=== PATIENT | male | born 1965 | race Caucasian/White ===

== ENCOUNTER 2016-06-30 17:24 | Emergency (ER) | payer SELFPAY ==
[~2016-06-30] VITALS: Ht 167.6 cm; Wt 78.0 kg
[2016-06-30 17:28] VITALS: Ht 167.6 cm; Wt 78.0 kg
[2016-06-30] MEDS ORDERED: CARB15DR48 BOTH EARS (23:40)
--- NOTE | 2016-06-30 23:52 | ERA ---
ER Documentation Chief Complaint Date/Time DATE: 06/30/16 TIME: 23:41 Chief Complaint RIGHT EAR HEARING LOSS X 2 MONTHS LAST THREE DAYS COMPLETELY CANT HEAR HPI Patient is a 50-year-old complaining of decreased hearing in the right ear. Patient's symptoms have been lasting for about 1 week. Patient says he has had symptoms like this before. Patient's symptoms previously were resolved with cerumen disimpaction. Patient denies any dizziness, vertigo, vision change, head trauma, fever or headache. ROS All systems reviewed and are negative except as per history of present illness. Medications Home Meds Active Scripts Carbamide Peroxide* (Debrox*) 6.5% - 15 Ml Drops, 10 DROP BOTH EARS BID for 1 Day, BOTTLE Prov:MARVIN CÁRDENAS PA-C 06/30/16 Allergies Allergies: Coded Allergies: No Known Drug Allergies (Verified Allergy, 08/02/12) PMhx/Soc Medical and Surgical Hx: pt denies Medical Hx, pt denies Surgical Hx History of Surgery: No Anesthesia Reaction: No Hx Neurological Disorder: No Hx Respiratory Disorders: No Hx Cardiac Disorders: No Hx Psychiatric Problems: No Hx Miscellaneous Medical Probl: No Hx Alcohol Use: No Hx Substance Use: No Hx Tobacco Use: Yes Smoking Status: Current some day smoker Physical Exam Vitals Vital Signs Date Time Temp Pulse Resp B/P Pulse Ox O2 Delivery O2 Flow Rate FiO2 06/30/16 17:28 98.3 108 18 155/108 96 Physical Exam Const: Well-appearing 50-year-old male. Head: Atraumatic Eyes: Normal Conjunctiva ENT: Normal External Ears, Nose and Mouth. Decreased hearing to finger rub on the left ear. Webbers his rines test were not done. Cerumen impaction visualized in the left ear canal. Neck: Full range of motion..~ No meningismus. Resp: Clear to auscultation bilaterally Cardio: Regular rate and rhythm, no murmurs Abd: Soft, non tender, non distended. Normal bowel sounds Skin: No petechiae or rashes Back: No midline or flank tenderness Ext: No cyanosis, or edema Neur: Awake and alert Psych: Normal Mood and Affect Procedures/MDM Patient is a 50-year-old male presenting complaining of decreased hearing in the left ear. Patient's had these symptoms before. Patient's symptoms were previously improved by the cerumen disimpaction. Patient denies any dizziness and her symptoms. At this time the most likely diagnosis is cerumen impaction as her cerumen impaction visualized on examination. We will have the nurses disimpact and reevaluate. Patient was disimpacted and then eloped. Reevaluation was never done. Departure Diagnosis: Primary Impression: Impacted cerumen of right ear Additional Impressions: Cerumen debris on tympanic membrane Qualified Code: H61.21 - Cerumen debris on tympanic membrane, right Cerumen impaction Qualified Code: H61.21 - Impacted cerumen of right ear Condition: Stable Patient Instructions: Cerumen Impaction, Home Care Additional Instructions: Return to emergency department if symptoms return/worsen. Follow-up with primary care provider in the next 1-3 days. MARVIN CÁRDENAS PA-C Jun 30, 2016 23:51
== END 2016-06-30 23:47 | disposition left against medical advice (07) ==
LOC: FTE 17:24
DX: H61.21 Impacted cerumen, right ear (principal); F17.210 Nicotine dependence, cigarettes, uncomplicated
CPT/HCPCS: 99283